=== PATIENT | female | born 1955 | race Caucasian/White ===

== ENCOUNTER 2017-07-13 18:46 | Emergency (ER) | payer SELFPAY ==
--- NOTE | 2017-07-13 21:33 | ER Document Report ---
ED General - General Mode of Arrival: Ambulatory Information source: Patient TRAVEL OUTSIDE OF THE [place] IN LAST 30 DAYS: No - HPI Patient complains to provider of: Lightheaded Onset: Other - 2 days ago Associated symptoms: Other - see notes above <TASHA BASILIO - Last Filed: 07/13/17 21:38> <ZABRINA SELBY - Last Filed: 07/13/17 23:50> - General Chief Complaint: Dizziness Stated Complaint: DIZZY Time Seen by Provider: 07/13/17 21:05 Notes: 62 year old female with history of COPD presents to the ED complaining of feeling lightheaded for the past 2 days. Patient is additionally complaining of blurry vision, states that her 'mind is fuzzy', headache that started yesterday , and swelling to the right neck. Patient denies numbness, tingling, or dizziness. Patient denies any trouble remembering. Patient took her blood pressure at home which was 175/105. Patient's primary care provider is the [facility]. (TASHA BASILIO) - Related Data Allergies/Adverse Reactions: No Known Allergies Allergy (Verified 07/15/16 17:16) Past Medical History - General Information source: Patient - Social History Smoking Status: Current Every Day Smoker Chew tobacco use (# tins/day): No Frequency of alcohol use: None Drug Abuse: None Family History: CAD - mom and sister, Other - Mom had hx of [place] and diabetes Pulmonary Medical History: Reports: Hx COPD Renal/ Medical History: Denies: Hx Peritoneal Dialysis Past Surgical History: Reports: Hx Herniorrhaphy, Hx Orthopedic Surgery - right knee - Immunizations Hx Diphtheria, Pertussis, Tetanus Vaccination: Yes <TASHA BASILIO - Last Filed: 07/13/17 21:38> Review of Systems - Review of Systems Constitutional: No symptoms reported EENT: See HPI, Blurred vision, Other - right neck swelling Cardiovascular: See HPI, Lightheaded. denies: Dizziness Respiratory: No symptoms reported Gastrointestinal: No symptoms reported Genitourinary: No symptoms reported Female Genitourinary: No symptoms reported Musculoskeletal: No symptoms reported Skin: No symptoms reported Hematologic/Lymphatic: No symptoms reported Neurological/Psychological: See HPI, Headaches. denies: Numbness, Tingling -: Yes All other systems reviewed and negative <TASHA BASILIO - Last Filed: 07/13/17 21:38> Physical Exam <QUENTIN BASILIOUR - Last Filed: 07/13/17 21:38> <ZABRINA SELBY - Last Filed: 07/13/17 23:50> - Vital signs Vitals: Temp Pulse Resp BP Pulse Ox 98.7 F 76 16 162/81 H 95 07/13/17 19:28 07/13/17 19:28 07/13/17 19:28 07/13/17 19:28 07/13/17 19:28 - Notes Notes: GENERAL: Alert, interacts well. No acute distress. HEAD: Normocephalic, atraumatic. EYES: Pupils equal, round, and reactive to light. Extraocular movements intact. ENT: Oral mucosa moist, tongue midline. NECK: Full range of motion. Supple. Trachea midline. LUNGS: Clear to auscultation bilaterally, no wheezes, rales, or rhonchi. No respiratory distress. HEART: Regular rate and rhythm. No murmurs, gallops, or rubs. ABDOMEN: Soft, non-tender. Non-distended. Bowel sounds present in all 4 quadrants. EXTREMITIES: Moves all 4 extremities spontaneously. No edema, radial pulses 2/4 bilaterally. No cyanosis. NEUROLOGICAL: Alert and oriented x3. Normal speech. Cranial nerves II through XII grossly intact. Biceps and patellar DTRs 2+ bilaterally. Heel-mina test normal. Dorsiflexion and plantar flexion is normal. PSYCH: Normal affect, normal mood. SKIN: Warm, dry, normal turgor. No rashes or lesions noted. (TASHA BASILIO) On reexamination she does have slightly enlarged lymph nodes on the right side of her neck in the anterior cervical chain. No tracheal deviation, no thyroid enlargement. (ZABRINA SELBY) Course <CHETNATASHA - Last Filed: 07/13/17 21:38> - Laboratory Result Diagrams: 07/13/17 22:03 07/13/17 22:03 <ZABRINA SELBY - Last Filed: 07/13/17 23:50> - Re-evaluation Re-evalutation: 07/13/17 23:45 CBC unremarkable, CMP unremarkable, cardiac enzymes negative, urinalysis has 1 RBC, CT scan of the head shows no acute process, chest x-ray shows increased thoracic kyphosis and mild compression fracture which is unchanged from the previous study but no acute process. 07/13/17 23:45 No increase or decrease in symptoms after a liter of normal saline, patient is not feeling any better or worse. Discussed with patient that I do not have an exact explanation for her lightheadedness at this time although I see no signs of stroke, heart attack, renal failure or infection. Encourage the patient follow-up with her primary care physician as an outpatient, as she has no primary care physician she will be referred to Dr. Char Staton, she does not have any health insurance that she will also be referred to the [facility]. Patient will be discharged to home. (ZABRINA SELBY) - Vital Signs Vital signs: Temp Pulse Resp BP Pulse Ox 98.7 F 76 21 H 154/82 H 96 07/13/17 19:28 07/13/17 19:28 07/13/17 22:06 07/13/17 22:06 07/13/17 22:06 - Laboratory Laboratory results interpreted by me: 07/13/17 07/13/17 22:03 22:49 Direct Bilirubin 0.5 H Urine Blood SMALL H - EKG Interpretation by Me Additional EKG results interpreted by me: 07/13/17 23:45 EKG shows sinus rhythm at a rate of 76, normal axis, normal intervals, no ST segment elevations or depressions, there are nonspecific T-wave flattening noted in lead I and T-wave inversions noted in aVL per my interpretation. ( ZABRINA SELBY) Discharge <TASHA BASILIO - Last Filed: 07/13/17 21:38> <ZABRINA SELBY - Last Filed: 07/13/17 23:50> - Discharge Clinical Impression: Light-headed feeling, Anterior cervical adenopathy Hypertension Qualifiers: Hypertension type: unspecified Qualified Code(s): I10 - Essential (primary) hypertension Condition: Stable Disposition: HOME, SELF-CARE Additional Instructions: Today I do not know exactly what is causing your dizziness. I do not see any signs of stroke or heart attack today. It is very important that you follow-up with a primary care physician as an outpatient. I have referred you both to Dr. Char Staton into the [facility] for further outpatient follow-up. Please return to the emergency department for facial droop, numbness, weakness or any new or concerning symptoms including persistent dizziness. Referrals: CHAR STATON MD [COMMUNITY BASED STAFF] - Follow up as needed [facility] [Provider Group] - Follow up as needed Scribe Attestation: 07/13/17 23:49 I personally performed the services described in the documentation, reviewed and edited the documentation which was dictated to the scribe in my presence, and it accurately records my words and actions. (ZABRINA SELBY) Scribe Documentation - Scribe Written by Keaganibe:: Gala Ward, 07/13/2017 [id number] acting as scribe for :: Cindi <TASHA BASILIO - Last Filed: 07/13/17 21:38>
[2017-07-13] MEDS ORDERED: NORMAL SALINE 1000 ML 1,000 ML IV ONE (21:34)
--- NOTE | 2017-07-13 21:51 | RADIOLOGY REPORT (SQ) ---
EXAM DESCRIPTION: CT HEAD WITHOUT COMPLETED DATE/TIME: 07/13/2017 9:42 pm REASON FOR STUDY: dizziness, headache COMPARISON: None. TECHNIQUE: Axial images acquired through the brain without intravenous contrast. Images reviewed wi th bone, brain and subdural windows. Images stored on PACS. All CT scanners at this facility use dose modulation, iterative reconstruction, and/or weight based d osing when appropriate to reduce radiation dose to as low as reasonably achievable (ALARA). [facility]: Dose Right [facility]: CareDose [facility]: Dose Right [facility]: Teradose 4D [facility]: [employer] RADIATION DOSE: mGy. LIMITATIONS: None. FINDINGS: VENTRICLES: Normal size and contour. CEREBRUM: No masses. No hemorrhage. No midline shift. No evidence for acute infarction. Normal gra y/white matter differentiation. No areas of low density in the white matter. CEREBELLUM: No masses. No hemorrhage. No alteration of density. No evidence for acute infarction. EXTRAAXIAL SPACES: No fluid collections. No masses. ORBITS AND GLOBE: No intra- or extraconal masses. Normal contour of globe without masses. CALVARIUM: No fracture. PARANASAL SINUSES: Mucosal thickening is identified in the right maxillary antra. SOFT TISSUES: No mass or hematoma. OTHER: No other significant finding. IMPRESSION: NORMAL BRAIN CT WITHOUT CONTRAST. EVIDENCE OF ACUTE STROKE: NO. COMMENT: Quality ID # [id number]: Final reports with documentation of one or more dose reduction techniques (e.g., Automated exposure control, adjustment of the mA and/or kV according to patient size, use of iterative reconstruction technique) TECHNICAL DOCUMENTATION: JOB ID: [id number] [employer]- All Rights Reserved
--- NOTE | 2017-07-13 21:59 | RADIOLOGY REPORT (SQ) ---
EXAM DESCRIPTION: CHEST PA/LAT COMPLETED DATE/TIME: 07/13/2017 9:49 pm REASON FOR STUDY: dizziness, headache COMPARISON: June 2016 EXAM PARAMETERS: NUMBER OF VIEWS: two views TECHNIQUE: Digital Frontal and Lateral radiographic views of the chest acquired. RADIATION DOSE: NA LIMITATIONS: none FINDINGS: LUNGS AND PLEURA: No opacities, masses or pneumothorax. No pleural effusion. I cannot exc lude a component of obstructive lung disease. MEDIASTINUM AND HILAR STRUCTURES: No masses or contour abnormalities. HEART AND VASCULAR STRUCTURES: The configuration of the heart and mediastinal structures is unchanged BONES: Bony structures are osteopenic with a slightly exaggerated thoracic kyphosis and degenerative changes in the thoracic spine. There is mild compression of 1 of the mid thoracic vertebra unchanged from the previous study. HARDWARE: None in the chest. OTHER: No other significant finding. IMPRESSION: No significant interval change. No acute findings. Other findings as noted above. TECHNICAL DOCUMENTATION: JOB ID: [id number] [employer]- All Rights Reserved
[2017-07-13 22:19] LABS: ABSOLUTE BASOPHILS # (AUTO) 0.1 10^3/uL (0.0-0.2); ABSOLUTE EOSINOPHILS # (AUTO) 0.2 10^3/uL (0.0-0.6); ABSOLUTE LYMPHOCYTES (AUTO) 2.6 10^3/uL (0.5-4.7); ABSOLUTE MONOCYTES (AUTO) 0.8 10^3/uL (0.1-1.4); ABSOLUTE NEUT (AUTO) 4.1 10^3/uL (1.7-8.2); BASOPHILS % (AUTO) 1.1 % (0-2); HEMATOCRIT 43.8 % (36.0-47.0); HEMOGLOBIN 15.1 g/dL (12.0-15.5); HGB HCT DIFFERENCE 1.5; LYMPHOCYTES % (AUTO) 33.6 % (13-45); MEAN CORPUSCULAR HEMOGLOBIN 31.1 pg (27.0-33.4); MEAN CORPUSCULAR HGB CONC 34.5 g/dL (32.0-36.0); MEAN CORPUSCULAR VOLUME 90 fl (80-97); MONOCYTES % (AUTO) 10.1 % (3-13); RED BLOOD COUNT 4.85 10^6/uL (3.72-5.28); RED CELL DISTRIBUTION WIDTH 13.9 % (11.5-14.0); SEGMENTED NEUTROPHILS % (AUTO) 52.2 % (42-78); WHITE BLOOD COUNT 7.8 10^3/uL (4.0-10.5)
[2017-07-13 22:38] LABS: ALANINE AMINOTRANSFERASE 38 U/L (9-52); ALBUMIN 4.1 g/dL (3.5-5.0); ALKALINE PHOSPHATASE 71 U/L (38-126); ANION GAP 9 (5-19); ASPARTATE AMINO TRANSFERASE 20 U/L (14-36); BILIRUBIN,DIRECT 0.5 mg/dL (0.0-0.4); BILIRUBIN,TOTAL 1.2 mg/dL (0.2-1.3); BLOOD UREA NITROGEN 12 mg/dL (7-20); CALCIUM 9.8 mg/dL (8.4-10.2); CARBON DIOXIDE 28 mmol/L (22-30); CHLORIDE 105 mmol/L (98-107); CREATINE KINASE 80 U/L (30-135); CREATININE RESULT 0.77 mg/dL (0.52-1.25); GLUCOSE 90 mg/dL (75-110); POTASSIUM 4.1 mmol/L (3.6-5.0); SODIUM 141.7 mmol/L (137-145); TOTAL PROTEIN 6.6 g/dL (6.3-8.2)
[2017-07-13 22:50] LABS: CREATINE KINASE MB 1.98 ng/mL (<4.55)
[2017-07-13 22:53] LABS: TROPONIN I < 0.012 ng/mL
[2017-07-13 23:10] LABS: APPEARANCE,URINE CLEAR; BILIRUBIN,URINE NEGATIVE (NEGATIVE); GLUCOSE, URINE NEGATIVE (NEGATIVE); KETONES,URINE NEGATIVE (NEGATIVE); LEUKOCYTE ESTERASE,URINE NEGATIVE (NEGATIVE); NITRITE,URINE NEGATIVE (NEGATIVE); PROTEIN,URINE NEGATIVE (NEGATIVE); URINE SPECIFIC GRAVITY 1.003; UROBILINOGEN,URINE NEGATIVE mg/dL (<2.0)
[2017-07-13 23:51] VITALS: BP 169/90
--- NOTE | 2017-07-14 08:06 | EKG REPORT ---
SEVERITY:- NORMAL ECG - SINUS RHYTHM : Confirmed by: Summer Roach 14-Jul-2017 08:05:33
== END 2017-07-13 23:57 | disposition home or self-care (01) ==
LOC: ER 18:46
DX: R42 Dizziness and giddiness (principal); R59.0 Localized enlarged lymph nodes; I10 Essential (primary) hypertension; H53.8 Other visual disturbances; F17.200 Nicotine dependence, unspecified, uncomplicated
CPT/HCPCS: 93005; 99285; 96360; 36415; 82553; 82550; 85025; 80053; 81001; 84484; 71020; 70450; 93010; J7030

== ENCOUNTER 2018-03-07 15:13 | Emergency (ER) | payer BC, OTHER ==
[2018-03-07 15:21] VITALS: BP 147/73
[2018-03-07] MEDS ORDERED: CYCLOBENZAPRINE HCL 10 MG TABLET PO ONE (16:09)
[2018-03-07] MEDS ORDERED: IBUPROFEN 600 MG TABLET PO ONE (16:09)
--- NOTE | 2018-03-07 16:13 | ER Document Report ---
ED Neck/Back Problem - General Chief Complaint: Back Pain Stated Complaint: BACK PAIN Time Seen by Provider: 03/07/18 15:41 Mode of Arrival: Ambulatory Information source: Patient Notes: 62-year-old female presents to ED for complaint of right lower back pain. She states she has had this pain multiple times over the last couple years. She states she seen multiple doctors for this pain. She is alert and oriented respirations regular and unlabored speaking in full sentences walks with a even steady gait. Patient denies any loss of sensation to the legs any saddle anesthesia, any loss control of bowel bladder, or any loss control of the legs. TRAVEL OUTSIDE OF THE [place] IN LAST 30 DAYS: No - HPI Patient complains to provider of: Pain, Lower back Onset: Other - States this is a chronic problem but it started at this time over the last 3 weeks. Where: Work Onset: Chronic Timing: Waxing and waning Quality of pain: Achy, Burning Severity: Severe Pain Level: 5 Context: Bending, Lifting, Turning Recent injury: No Associated symptoms: Like prior neck/back pain, Lower back pain. denies: Motor loss, Numbness/tingling, Radiation to leg, Sensory loss, Sweaty, Unable to urinate, Upper back pain Exacerbated by: Movement of trunk Relieved by: Nothing Similar symptoms previously: Yes Recently seen / treated by doctor: No - Related Data Allergies/Adverse Reactions: No Known Allergies Allergy (Verified 03/07/18 15:45) Past Medical History - General Information source: Patient - Social History Smoking Status: Current Every Day Smoker Cigarette use (# per day): Yes - One half pack per day Chew tobacco use (# tins/day): No Smoking Education Provided: Yes - 4 minutes Frequency of alcohol use: None Drug Abuse: None Lives with: Alone Family History: CAD - mom and sister, Other - Mom had hx of [place] and diabetes Patient has suicidal ideation: No Patient has homicidal ideation: No - Past Medical History Cardiac Medical History: Reports: Hx Hypertension Pulmonary Medical History: Reports: Hx COPD EENT Medical History: Reports: None Neurological Medical History: Reports: None Endocrine Medical History: Reports: None Renal/ Medical History: Reports: Other - Uterine fibroids Malignancy Medical History: Reports: None GI Medical History: Reports: None Musculoskeltal Medical History: Reports Hx Arthritis, Reports Hx Musculoskeletal Trauma Skin Medical History: Reports None Psychiatric Medical History: Reports: None Traumatic Medical History: Reports: None Infectious Medical History: Reports: None Past Surgical History: Reports: Hx Hysterectomy, Hx Inguinal Hernia, Hx Orthopedic Surgery - right knee - Immunizations Hx Diphtheria, Pertussis, Tetanus Vaccination: Yes Review of Systems - Review of Systems Constitutional: No symptoms reported EENT: No symptoms reported Cardiovascular: No symptoms reported Respiratory: No symptoms reported Gastrointestinal: No symptoms reported Genitourinary: No symptoms reported Female Genitourinary: No symptoms reported Musculoskeletal: No symptoms reported Skin: No symptoms reported Hematologic/Lymphatic: No symptoms reported Neurological/Psychological: No symptoms reported -: Yes All other systems reviewed and negative Physical Exam - Vital signs Vitals: Temp Pulse Resp BP Pulse Ox 98.5 F 64 16 147/73 H 95 03/07/18 15:20 03/07/18 15:20 03/07/18 15:20 03/07/18 15:20 03/07/18 15:20 Interpretation: Normal - General General appearance: Appears well, Alert - HEENT Head: Normocephalic, Atraumatic Eyes: Normal Pupils: PERRL - Respiratory Respiratory status: No respiratory distress Chest status: Nontender Breath sounds: Normal Chest palpation: Normal - Cardiovascular Rhythm: Regular Heart sounds: Normal auscultation Murmur: No - Abdominal Inspection: Normal Distension: No distension Bowel sounds: Normal Tenderness: Nontender Organomegaly: No organomegaly - Back Back: Normal, Tender - Patient states she has a history of chronic back muscle spasms usually gets some muscle relaxers and Advil and she is okay.. No: Deformity/step-off, CVA tenderness, Vertebra tenderness, Scars, Scoliosis, Wounds - Extremities General upper extremity: Normal inspection, Nontender, Normal color, Normal ROM , Normal temperature General lower extremity: Normal inspection, Nontender, Normal color, Normal ROM , Normal temperature, Normal weight bearing. No: Cholo's sign - Neurological Neuro grossly intact: Yes Cognition: Normal Orientation: AAOx4 [place] Coma Scale Eye Opening: Spontaneous [place] Coma Scale Verbal: Oriented [place] Coma Scale Motor: Obeys Commands [place] Coma Scale Total: 15 Speech: Normal Motor strength normal: LUE, RUE, LLE, RLE Sensory: Normal - Psychological Associated symptoms: Normal affect, Normal mood - Skin Skin Temperature: Warm Skin Moisture: Dry Skin Color: Normal Course - Re-evaluation Re-evalutation: 03/07/18 22:31 Lower back pain. She states she gets muscle pain there sometimes from working. She states she does a lot of twisting and bending at work. She states usually she just needs muscle relaxers and ibuprofen and it takes care of the problem. Patient was prescribed Flexeril and ibuprofen and discharged home to follow-up with her primary doctor. After performing a Medical Screening Examination, I estimate there is LOW risk for EXPANDING OR RUPTURED ABDOMINAL AORTIC ANEURYSM, CAUDA EQUINA SYNDROME, EPIDURAL MASS LESION, or HERNIATED DISK CAUSING SEVERE SPINAL STENOSIS, thus I consider the discharge disposition reasonable. I have reevaluated this patient multiple times and no significant life threatening changes are noted. The patient and I have discussed the diagnosis and risks, and we agree with discharging home and close follow-up. We also discussed returning to the Emergency Department immediately if new or worsening symptoms occur with the understanding that symptoms and presentations can change. We have discussed the symptoms which are most concerning (e.g., saddle anesthesia, urinary or bowel incontinence or retention, changing or worsening pain) that necessitate immediate return. - Vital Signs Vital signs: Temp Pulse Resp BP Pulse Ox 98.5 F 64 16 147/73 H 95 03/07/18 15:20 03/07/18 15:20 03/07/18 15:20 03/07/18 15:20 03/07/18 15:20 Discharge - Discharge Clinical Impression: Right low back pain Qualifiers: Chronicity: chronic Sciatica presence: without sciatica Qualified Code(s): M54.5 - Low back pain HTN (hypertension) Qualifiers: Hypertension type: unspecified Qualified Code(s): I10 - Essential (primary) hypertension Condition: Stable Disposition: HOME, SELF-CARE Additional Instructions: LOW BACK PAIN: Three out of every four people will have an episode of disabling back pain during their lifetime. Most commonly the pain is due to straining of the muscles and ligaments in the low back. Usual treatment includes: (1) Rest on a firm surface. Avoid lying on your stomach. (2) Ice pack the painful area. After a few days, gentle heat may be used intermittently to relax the area, or ice packs can be continued. (3) Medication may be needed -- muscle relaxers and antiinflammatory medicines are commonly used. (4) As the back improves, exercises are prescribed to strengthen the back and abdominal muscles. Your doctor will advise you on the proper care for your back at each stage in your recovery. You may be better in a few days -- or healing may take several weeks. If new symptoms of a "herniated disc" (radiation of pain, numbness, or tingling down the back of the leg or weakness in the leg) occur, you should be re-examined. Further testing may be necessary. Ibuprofen Ibuprofen is an excellent, safe drug for pain control. In addition, it has potent antiinflammatory effects which are beneficial, especially in the treatment of injuries, arthritis, or tendonitis. It's best to take ibuprofen with food. Persons with ulcer disease or allergy to aspirin should notify their physician of this before taking ibuprofen. Take the medication exactly as prescribed. Don't take additional doses unless instructed to do so by your doctor. If you develop wheezing, shortness of breath, hives, faintness, stomach pain, vomiting, or dark black stools, return for re-evaluation at once. MUSCLE RELAXERS: Muscle relaxing medications are usually prescribed for acute muscle spasm or injury to the neck and back. They are often combined with antiinflammatory pain medication for increased relief. You may stop the muscle relaxer when the pain and stiffness have improved. Start the medication again if spasms recur. Muscle relaxers may cause drowsiness, especially with the first dose. Do not operate machinery or drive while under the effects of the medication. Most muscle relaxers last up to 24 hours. Do not combine the medication with alcohol. ICE PACKS: Apply ice packs frequently against the painful area. Many different schedules are recommended, such as "20 minutes on, 20 minutes off" or "one hour ice, two hours rest." If you need to work, you may need to go longer between ice treatments. You should plan to have the area ice packed AT LEAST one fourth of the time. The ice should be applied over the wrap, tape, or splint, or over a layer of cloth -- not directly against the skin. Some ice bags have a built-in cloth and can be put directly on the skin. WARM PACKS: After approximately two days, apply gentle heat (such as a heating pad or hot water bottle) for about 20 to 30 minutes about every two hours -- at least four times daily. Warmth and elevation will help you make a more rapid recovery , and will ease the pain considerably. Do not use HOT heat, and never apply heat for longer than 30 minutes. The continuous heat can invisibly damage skin and muscles -- even when no burn is seen on the surface. Damaged muscles can make you MORE sore. FOLLOW-UP CARE: If you have been referred to a physician for follow-up care, call the physician s office for an appointment as you were instructed or within the next two days. If you experience worsening or a significant change in your symptoms, notify the physician immediately or return to the Emergency Department at any time for re-evaluation. Prescriptions: Cyclobenzaprine HCl [Flexeril 10 mg Tablet] 10 mg PO TIDP PRN #15 tab PRN Reason: Ibuprofen 800 mg PO BIDP PRN #14 tablet PRN Reason: For Pain Forms: Elevated Blood Pressure, Smoking Cessation Education, Return to Work Referrals: [facility] [Provider Group] - Follow up as needed
== END 2018-03-07 16:18 | disposition home or self-care (01) ==
LOC: ER 15:13
DX: G89.29 Other chronic pain (principal); M54.5 Low back pain; I10 Essential (primary) hypertension; F17.210 Nicotine dependence, cigarettes, uncomplicated; Z90.710 Acquired absence of both cervix and uterus
CPT/HCPCS: 99283; 99406

== ENCOUNTER → 2020-09-19 | Outpatient (CLI) | payer MEDICARE ==
--- NOTE | 2020-09-19 16:04 | RADIOLOGY REPORT (SQ) ---
EXAM DESCRIPTION: CT ABDOMEN NO ORAL OR IV IMAGES COMPLETED DATE/TIME: 09/19/2020 3:52 pm REASON FOR STUDY: VENTRAL HERNIA W/O OBSTRUCTION GANGRENE K43.9 VENTRAL HERNIA WITHOUT OBSTRUCTION OR GANGRENE COMPARISON: None. TECHNIQUE: CT scan of the abdomen performed without intravenous contrast and without oral contrast. Images reviewed with lung, soft tissue, and bone windows. Reconstructed coronal and sagittal MPR im ages reviewed. All images stored on PACS. All CT scanners at this facility use dose modulation, iterative reconstruction, and/or weight based d osing when appropriate to reduce radiation dose to as low as reasonably achievable (ALARA). [facility]: Dose Right [facility]: CareDose [facility]: Dose Right [facility]: Teradose 4D [facility]: [employer] RADIATION DOSE: CT Rad equipment meets quality standard of care and radiation dose reduction techniq ues were employed. CTDIvol: 13.0 mGy. DLP: 370 mGy-cm.mGy. LIMITATIONS: None. FINDINGS: LOWER CHEST: No significant findings. No nodules or infiltrates. NONCONTRASTED LIVER, SPLEEN, ADRENALS: Evaluation limited by lack of IV contrast. No identified sign ificant masses. PANCREAS: No masses. No peripancreatic inflammatory changes. GALLBLADDER: No identified stones by CT criteria. No inflammatory changes to suggest cholecystitis. RIGHT KIDNEY AND URETER: No suspicious masses. Assessment limited by lack of IV contrast. No signif icant calcifications. No hydronephrosis or hydroureter. LEFT KIDNEY AND URETER: No suspicious masses. Assessment limited by lack of IV contrast. No signifi cant calcifications. No hydronephrosis or hydroureter. AORTA AND RETROPERITONEUM: No aneurysm. No retroperitoneal masses or adenopathy. BOWEL AND PERITONEAL CAVITY: No obvious masses or inflammatory changes. No free fluid. APPENDIX: Normal. ABDOMINAL WALL: Minimal umbilical hernia contains only fat. BONES: No significant findings. OTHER: No other significant finding. IMPRESSION: There is a minimal umbilical hernia containing only fat. No other significant findings in the abdomen. TECHNICAL DOCUMENTATION: JOB ID: [id number] Quality ID # [id number]: Final reports with documentation of one or more dose reduction techniques (e.g., Au tomated exposure control, adjustment of the mA and/or kV according to patient size, use of iterative reconstruction technique) 2010 [employer]- All Rights Reserved Reading location - IP/workstation name: [email or web address]
== END ==
LOC: RAD 15:05
PROVIDERS: ATTEND Surgery
DX: K43.9 Ventral hernia without obstruction or gangrene (principal)
CPT/HCPCS: 74150